=== PATIENT | female | born 1960 | race Caucasian/White ===

== ENCOUNTER 2018-10-13 13:11 | Emergency (ER) | payer BC ==
--- OUTSIDE RECORDS SUMMARY | 2018-10-13 13:13 | XMS REPORT ---
:1960 Author Organization [employer] Care Team Providers Name Role Phone Wilson, Sara Provider Role Unavailable Allergies, Adverse Reactions, Alerts Substance Reaction Event Type N.K.D.A. Info Not Available Non Drug Allergy Problems Problem Type Condition Code Onset Dates Condition Status Problem History of ovarian cancer Z85.43 Active Problem Cancer C80.1 Active Problem Sinus problem J34.9 Active Problem Other acute nonsuppurative otitis H65.191 Active media of right ear, recurrence not specified Problem Hernia of abdominal cavity K46.9 Active Problem Seasonal allergies J30.2 Active Problem Allergic sinusitis J30.9 Active Problem Gallstones K80.20 Active Problem History of colostomy reversal Z98.890 Active Problem HTN (hypertension) I10 Active Assessment Blood tests for routine general Z00.00 Active physical examination Assessment Seasonal allergies J30.2 Active Assessment HTN (hypertension) I10 Active Assessment Screening mammogram for high-risk Z12.31 Active patient Assessment History of ovarian cancer Z85.43 Active Problem Seasonal allergic rhinitis due to J30.1 Active pollen Medications Medication Code Code Instructions Start End Status Dosage System Date Date Scopolamine [facility] 50703169201 1 MG/3DAYS Active 1 patch to Transdermal skin every every 72 hours 3 days as needed for nausea Losartan ND 46030383099 100 MG Orally Active 1 tablet Potassium Once a day Nasonex ND 61473091572 50 MCG/ACT April 26, Active 2 sprays Nasally Once a 2018 in each day nostril Results No Known Results Summary Purpose [employer] Submission
--- OUTSIDE RECORDS SUMMARY | 2018-10-13 13:13 | XMS REPORT | Clinical Summary ---
:1960 Author Organization [facility] Address [address] [place] [address] Care Team Providers Name Role Phone Masoud Lyman MD Primary Care Provider Allergies Active Allergy Reactions Severity Noted Date Comments No Known Drug Allergies 06/05/2016 Medications Medication Sig Dispensed Refills Start Date End Date Status COZAAR 100 mg tablet Take 100 mg by 0 06/29/2018 Active mouth daily. chlorpheniramine Take 5 mg by 0 Active (CHLOR-TRIMETON) 4 mg mouth every 6 tablet (six) hours as needed for allergies. triamcinolone (KENALOG) Apply topically 0 Active 0.147 mg/gram topical 2 (two) times a spray day. triamcinolone (NASACORT) into each 0 Active 55 mcg nasal inhaler nostril. Active Problems Not on file Encounters Date Type Specialty Care Team Description 08/27/2018 Telephone Radiology Barbra Quick RN 08/24/2018 Hospital Encounter Radiology Lavern Dudley Malignant neoplasm MD Terence of ovary, unspecified laterality (HCC) 08/24/2018 Hospital Encounter Radiology Lavern Dudley Malignant neoplasm MD Terence of ovary, unspecified laterality (HCC) 08/15/2018 Abstract Gynecologic Oncology Lavern Dudley MD 08/12/2018 Hospital Encounter Radiology Lavern Dudley MD 08/12/2018 Office Visit Gynecologic Oncology Lavern Dudley Malignant neoplasm of ovary, unspecified laterality (HCC) (Primary Dx); MD Terence Recurrent cancer (HCC) 08/12/2018 Telephone Gynecologic Oncology Lavern Dudley MD 08/04/2018 Telephone Gynecologic Oncology Lavern Dudley MD 08/03/2018 Telephone Gynecologic Oncology Lavern Dudley MD after 10/12/2017 Family History Medical History Relation Name Comments Hypertension Other Colon cancer Paternal Grandfather Breast cancer Paternal Grandmother Breast cancer Sister Relation Name Status Comments Other Paternal Grandfather Paternal Grandmother Sister Social History Tobacco Use Types Packs/Day Years Used Date Never Smoker Smokeless Tobacco: Never Used Alcohol Use Drinks/Week oz/Week Comments No Sex Assigned at Date Recorded Not on file Job Start Date Occupation Industry Not on file Not on file Not on file Travel History Travel Start Travel End No recent travel history available. Last Filed Vital Signs Vital Sign Reading Time Taken Blood Pressure 122/69 08/24/2018 12:50 PM CDT Pulse 86 08/24/2018 12:50 PM CDT Temperature 37.3 C (99.1 F) 08/24/2018 8:06 AM CDT Respiratory Rate 17 08/24/2018 12:50 PM CDT Oxygen Saturation 95% 08/24/2018 12:50 PM CDT Inhaled Oxygen Concentration - - Weight 98.9 kg (218 lb) 08/24/2018 8:06 AM CDT Height 175.3 cm (5' 9") 08/24/2018 8:06 AM CDT Body Mass Index 32.19 08/24/2018 8:06 AM CDT Plan of Treatment Date Type Specialty Care Team Description 11/17/2018 Office Visit [place] [address] [facility] [address] [place] [address] [id number] Health Maintenance Due Date Last Done Comments CERVICAL CANCER SCREENING 1979 BREAST CANCER SCREENING 2008 COLON CANCER SCREENING 2008 SHINGLES VACCINES (1 of 2) 2008 INFLUENZA VACCINE 06/01/2018 Implants Implanted Type Area Medical Office Assistant Instructor Device Shelf Model / Identifier Expiration Serial / Date Lot Port Imlpntbl Smart Port W/ Dtchd 0.4ml 6.6fr 55cm W/ Sheath - [id number] Implantable N/A: ANGIODYNAMICS 03/31/2021 [id number] / Implanted: 08/24/2018 (Quantity not on file) Infusion Ports N/A INC / or Accessories [id number] Procedures Procedure Name Priority Date/Time Associated Comments Diagnosis US GUIDED VASCULAR Routine 08/24/2018 11:22 Malignant neoplasm Results for this ACCESS AM CDT of ovary, procedure are in unspecified the results laterality (HCC) section. IR PORT PLACEMENT Routine 08/24/2018 11:22 Malignant neoplasm Results for this AM CDT of ovary, procedure are in unspecified the results laterality (HCC) section. SURGICAL PATHOLOGY Routine 08/24/2018 10:46 Results for this REQUEST AM CDT procedure are in the results section. CT NEEDLE BIOPSY NO Routine 08/24/2018 10:02 Malignant neoplasm Results for this CONTRAST AM CDT of ovary, procedure are in unspecified the results laterality (HCC) section. HC COMPLETE BLD COUNT STAT 08/24/2018 7:45 Results for this W/AUTO DIFF AM CDT procedure are in the results section. PARTIAL THROMBOPLASTIN STAT 08/24/2018 7:45 Results for this TIME (PTT) AM CDT procedure are in the results section. PROTHROMBIN TIME WITH STAT 08/24/2018 7:45 Results for this INR AM CDT procedure are in the results section. SURGICAL PATHOLOGY Routine 08/24/2018 Results for this REQUEST procedure are in the results section. PET CT SKULL BASE TO Routine 08/18/2018 Results for this MID THIGH procedure are in the results section. ESTIMATED GFR Routine 08/12/2018 10:45 Results for this AM CDT procedure are in the results section. PARTIAL THROMBOPLASTIN Routine 08/12/2018 10:45 Malignant neoplasm Results for this TIME (PTT) AM CDT of ovary, procedure are in unspecified the results laterality (HCC) section. COMPREHENSIVE METABOLIC Routine 08/12/2018 10:45 Malignant neoplasm Results for this PANEL AM CDT of ovary, procedure are in unspecified the results laterality (HCC) section. HC COMPLETE BLD COUNT Routine 08/12/2018 10:45 Malignant neoplasm Results for this W/AUTO DIFF AM CDT of ovary, procedure are in unspecified the results laterality (HCC) section. CANCER ANTIGEN 125 Routine 08/12/2018 10:45 Malignant neoplasm Results for this AM CDT of ovary, procedure are in unspecified the results laterality (HCC) section. PROTHROMBIN TIME WITH Routine 08/12/2018 10:45 Malignant neoplasm Results for this INR AM CDT of ovary, procedure are in unspecified the results laterality (HCC) section. CANCER ANTIGEN 125 Routine 08/12/2018 CT ABD/PELVIC EXTERNAL Routine 07/22/2018 2:49 Results for this STUDY PM CDT procedure are in the results section. after 10/12/2017 Results IR Port Placement (08/24/2018 11:22 AM CDT) Narrative Performed At Performing Radiologist COLIN Varela MD Assistants None Anesthesia Type Moderate sedation was administered by the procedure nurse and monitored by the procedure physician for a total intraservice sedation time of 41 minutes. 75 mcg of IV fentanyl and 1.5 mg of IV versed were administered. Lidocaine 1% and lidocaine 1% mixed with epinephrine were used for local anesthetic. Pre Procedure Diagnosis ovarian malignancy Post Procedure Diagnosis Status post subcutaneous right chest port placement. Procedure Subcutaneous right chest port placement. Technique Written informed consent was obtained prior to the procedure. All elements of maximal sterile barrier technique were followed. Using ultrasound guidance, the right internal jugular vein was punctured with a 21-gauge needle allowing placement of a 0.018 inch guidewire. The needle was removed and a micropuncture sheath was then placed over the guidewire. Under ultrasound guidance, documentation of vessel patency, needle access with permanent recording, and reporting are performed followed by placement of a sheath in the right internal jugular vein. A subcutaneous pocket was then created at the right infraclavicular fossa using sharp and blunt dissection. A tunnel was made between the pocket and the venotomy site, through which the 6.6-Cuban port catheter was placed. The venotomy was sequentially dilated to accept an 7-Cuban peel-away sheath, through which the leading edge of the catheter was advanced under fluoroscopic guidance. The trailing end of the catheter was trimmed to the appropriate length and attached to a low profile Angiodynamics Smart Port CT. Following irrigation of the pocket with dilute antibiotic solution, the port was placed within the pocket. The port incision was closed using a deep layer of interrupted 3-0 Vicryl suture, 4-0 Monocryl running subcuticular suture, Dermabond and Steri-Strips. The small venotomy incision was closed using Dermabond and Steri-Strips. The port was accessed and found to flush and aspirate freely. A post placement fluoroscopic imaging of the chest was then obtained. There were no complications. Total Fluoroscopic Time 0.2 minutes . Total number of fluoroscopic images: 1 Complications None. Specimens Removed None. Estimated Blood Loss Less than 2 mL. Blood/Blood Products Administered None. Grafts/Implants As described in the above report. Impression: Successful fluoroscopic-guided placement of a subcutaneous right chest port via the right internal jugular vein. The catheter tip lies at the right atrium/superior vena cava junction and is ready for use. [id number] Procedure Note Hm Interface, Radiology Results Incoming - 08/24/2018 4:09 PM CDT Performing Radiologist Tripp Varela MD Assistants None Anesthesia Type Moderate sedation was administered by the procedure nurse and monitored by the procedure physician for a total intraservice sedation time of 41 minutes. 75 mcg of IV fentanyl and 1.5 mg of IV versed were administered. Lidocaine 1% and lidocaine 1% mixed with epinephrine were used for local anesthetic. Pre Procedure Diagnosis ovarian malignancy Post Procedure Diagnosis Status post subcutaneous right chest port placement. Procedure Subcutaneous right chest port placement. Technique Written informed consent was obtained prior to the procedure. All elements of maximal sterile barrier technique were followed. Using ultrasound guidance, the right internal jugular vein was punctured with a 21-gauge needle allowing placement of a 0.018 inch guidewire. The needle was removed and a micropuncture sheath was then placed over the guidewire. Under ultrasound guidance, documentation of vessel patency, needle access with permanent recording, and reporting are performed followed by placement of a sheath in the right internal jugular vein. A subcutaneous pocket was then created at the right infraclavicular fossa using sharp and blunt dissection. A tunnel was made between the pocket and the venotomy site, through which the 6.6- Cuban port catheter was placed. The venotomy was sequentially dilated to accept an 7- Cuban peel-away sheath, through which the leading edge of the catheter was advanced under fluoroscopic guidance. The trailing end of the catheter was trimmed to the appropriate length and attached to a low profile Angiodynamics Smart Port CT. Following irrigation of the pocket with dilute antibiotic solution, the port was placed within the pocket. The port incision was closed using a deep layer of interrupted 3-0 Vicryl suture, 4-0 Monocryl running subcuticular suture, Dermabond and Steri-Strips. The small venotomy incision was closed using Dermabond and Steri-Strips. The port was accessed and found to flush and aspirate freely. A post placement fluoroscopic imaging of the chest was then obtained. There were no complications. Total Fluoroscopic Time 0.2 minutes . Total number of fluoroscopic images: 1 Complications None. Specimens Removed None. Estimated Blood Loss Less than 2 mL. Blood/Blood Products Administered None. Grafts/Implants As described in the above report. Impression: Successful fluoroscopic-guided placement of a subcutaneous right chest port via the right internal jugular vein. The catheter tip lies at the right atrium/ superior vena cava junction and is ready for use. [id number] Performing Organization Address City/State/Zipcode Phone Number [facility] [address] [place] [address] US Guided Vascular Access (08/24/2018 11:22 AM CDT) Narrative Performed At Performing Radiologist GISSELL Varela MD Assistants None Anesthesia Type Moderate sedation was administered by the procedure nurse and monitored by the procedure physician for a total intraservice sedation time of 41 minutes. 75 mcg of IV fentanyl and 1.5 mg of IV versed were administered. Lidocaine 1% and lidocaine 1% mixed with epinephrine were used for local anesthetic. Pre Procedure Diagnosis ovarian malignancy Post Procedure Diagnosis Status post subcutaneous right chest port placement. Procedure Subcutaneous right chest port placement. Technique Written informed consent was obtained prior to the procedure. All elements of maximal sterile barrier technique were followed. Using ultrasound guidance, the right internal jugular vein was punctured with a 21-gauge needle allowing placement of a 0.018 inch guidewire. The needle was removed and a micropuncture sheath was then placed over the guidewire. Under ultrasound guidance, documentation of vessel patency, needle access with permanent recording, and reporting are performed followed by placement of a sheath in the right internal jugular vein. A subcutaneous pocket was then created at the right infraclavicular fossa using sharp and blunt dissection. A tunnel was made between the pocket and the venotomy site, through which the 6.6-Cuban port catheter was placed. The venotomy was sequentially dilated to accept an 7-Cuban peel-away sheath, through which the leading edge of the catheter was advanced under fluoroscopic guidance. The trailing end of the catheter was trimmed to the appropriate length and attached to a low profile Angiodynamics Smart Port CT. Following irrigation of the pocket with dilute antibiotic solution, the port was placed within the pocket. The port incision was closed using a deep layer of interrupted 3-0 Vicryl suture, 4-0 Monocryl running subcuticular suture, Dermabond and Steri-Strips. The small venotomy incision was closed using Dermabond and Steri-Strips. The port was accessed and found to flush and aspirate freely. A post placement fluoroscopic imaging of the chest was then obtained. There were no complications. Total Fluoroscopic Time 0.2 minutes . Total number of fluoroscopic images: 1 Complications None. Specimens Removed None. Estimated Blood Loss Less than 2 mL. Blood/Blood Products Administered None. Grafts/Implants As described in the above report. Impression: Successful fluoroscopic-guided placement of a subcutaneous right chest port via the right internal jugular vein. The catheter tip lies at the right atrium/superior vena cava junction and is ready for use. [id number] Procedure Note Hm Interface, Radiology Results Incoming - 08/24/2018 4:09 PM CDT Performing Radiologist Tripp Varela MD Assistants None Anesthesia Type Moderate sedation was administered by the procedure nurse and monitored by the procedure physician for a total intraservice sedation time of 41 minutes. 75 mcg of IV fentanyl and 1.5 mg of IV versed were administered. Lidocaine 1% and lidocaine 1% mixed with epinephrine were used for local anesthetic. Pre Procedure Diagnosis ovarian malignancy Post Procedure Diagnosis Status post subcutaneous right chest port placement. Procedure Subcutaneous right chest port placement. Technique Written informed consent was obtained prior to the procedure. All elements of maximal sterile barrier technique were followed. Using ultrasound guidance, the right internal jugular vein was punctured with a 21-gauge needle allowing placement of a 0.018 inch guidewire. The needle was removed and a micropuncture sheath was then placed over the guidewire. Under ultrasound guidance, documentation of vessel patency, needle access with permanent recording, and reporting are performed followed by placement of a sheath in the right internal jugular vein. A subcutaneous pocket was then created at the right infraclavicular fossa using sharp and blunt dissection. A tunnel was made between the pocket and the venotomy site, through which the 6.6- Cuban port catheter was placed. The venotomy was sequentially dilated to accept an 7- Cuban peel-away sheath, through which the leading edge of the catheter was advanced under fluoroscopic guidance. The trailing end of the catheter was trimmed to the appropriate length and attached to a low profile Angiodynamics Smart Port CT. Following irrigation of the pocket with dilute antibiotic solution, the port was placed within the pocket. The port incision was closed using a deep layer of interrupted 3-0 Vicryl suture, 4-0 Monocryl running subcuticular suture, Dermabond and Steri-Strips. The small venotomy incision was closed using Dermabond and Steri-Strips. The port was accessed and found to flush and aspirate freely. A post placement fluoroscopic imaging of the chest was then obtained. There were no complications. Total Fluoroscopic Time 0.2 minutes . Total number of fluoroscopic images: 1 Complications None. Specimens Removed None. Estimated Blood Loss Less than 2 mL. Blood/Blood Products Administered None. Grafts/Implants As described in the above report. Impression: Successful fluoroscopic-guided placement of a subcutaneous right chest port via the right internal jugular vein. The catheter tip lies at the right atrium/ superior vena cava junction and is ready for use. [id number] Performing Organization Address City/[facility] Phone Number [facility] [address] [place] [address] Surgical pathology request (08/24/2018 10:46 AM CDT)Only the most recent of2 resultswithin the time period is included. [facility] DEPARTMENT OF PATHOLOGY AND GENOMIC MEDICINE Surgical pathology report See link below for PDF [facility] DEPARTMENT OF Lab Report PATHOLOGY AND GENOMIC MEDICINE Result status This is Final Report [facility] DEPARTMENT OF for [id number] PATHOLOGY AND GENOMIC MEDICINE Performing Organization Address [facility]ode Phone Number [facility] DEPARTMENT OF PATHOLOGY [address] [place] [address] Needle Biopsy No Contrast (08/24/2018 10:02 AM CDT) Narrative Performed At EXAMINATION:CT NEEDLE BIOPSY NO CONTRAST RADIANT CLINICAL HISTORY:C56.9 Malignant neoplasm of unspecified ovary, IR biopsy of pelvic mass COMPARISON:None. TECHNIQUE: The risks and benefits of the procedure were discussed the patient. Informed consent was obtained. Preprocedure scanning confirms an 8 cm complex cystic mass in the pelvis which was targeted for biopsy. A preprocedural timeout was performed. The patient was positioned supine. The skin overlying the lower abdomen was sterilely prepped and draped in usual fashion. 1% buffered lidocaine was used for local anesthesia. Using CT guidance, a 19-gauge guide needle was advanced into the mass via a left anterolateral abdominal approach. Multiple core biopsy specimens were obtained using a 20-gauge core biopsy needle through the guide needle using standard coaxial technique. Specimens were sent to pathology for adequacy check. The guide needle was then removed and a bandage was applied. There were no complications. Moderate monitored sedation was achieved with 1.5 mg of IV Versed and 75 mcg of IV fentanyl, total intraservice sedation 37 minutes. IMPRESSION: Uncomplicated CT-guided biopsy of 8 cm pelvic complex mass. [id number] Procedure Note Interface, Radiology Results Incoming - 08/24/2018 1:34 PM CDT EXAMINATION: CT NEEDLE BIOPSY NO CONTRAST CLINICAL HISTORY: C56.9 Malignant neoplasm of unspecified ovary, IR biopsy of pelvic mass COMPARISON: None. TECHNIQUE: The risks and benefits of the procedure were discussed the patient. Informed consent was obtained. Preprocedure scanning confirms an 8 cm complex cystic mass in the pelvis which was targeted for biopsy. A preprocedural timeout was performed. The patient was positioned supine. The skin overlying the lower abdomen was sterilely prepped and draped in usual fashion. 1% buffered lidocaine was used for local anesthesia. Using CT guidance, a 19-gauge guide needle was advanced into the mass via a left anterolateral abdominal approach. Multiple core biopsy specimens were obtained using a 20-gauge core biopsy needle through the guide needle using standard coaxial technique. Specimens were sent to pathology for adequacy check. The guide needle was then removed and a bandage was applied. There were no complications. Moderate monitored sedation was achieved with 1.5 mg of IV Versed and 75 mcg of IV fentanyl, total intraservice sedation 37 minutes. IMPRESSION: Uncomplicated CT-guided biopsy of 8 cm pelvic complex mass. [id number] Performing Organization Address City/State/Zipcode Phone Number [facility] [address] [facility] [place] [address] Partial thromboplastin time, activated (08/24/2018 7:45 AM CDT)Only the most recent of2 resultswithin the time period is included. PTT 29.5 23.0 - 36.0 sec [facility] DEPARTMENT OF Comment: PATHOLOGY AND GENOMIC PTT therapeutic range for unfractionated heparin is MEDICINE 61.0-112.0 seconds which corresponds to Anti-Xa 0.3-0.7 U/ml. Specimen Blood Performing Organization Address City/[facility]/Zipcode Phone Number [facility] DEPARTMENT OF PATHOLOGY [address] [place] [address] Prothrombin time with INR (08/24/2018 7:45 AM CDT)Only the most recent of2 resultswithin the time period is included. Prothrombin time 13.1 12.0 - 15.0 sec [facility] DEPARTMENT OF PATHOLOGY AND GENOMIC MEDICINE INR 1.0 [facility] DEPARTMENT OF Comment: PATHOLOGY AND GENOMIC The International Normalized Ratio (INR) is a therapeutic MEDICINE monitoring tool for patients who are stable on oral anticoagulant therapy. An INR of 2.0-3.0 is suggested for deep vein thrombosis/pulmonary embolism. Specimen Blood Performing Organization Address [facility]ode Phone Number [facility] OF PATHOLOGY [address] [place] [address] CBC with platelet and differential (08/24/2018 7:45 AM CDT)Only the most recent of2 resultswithin the time period is included. WBC 9.1 4.5 - 11.0 k/uL [facility] DEPARTMENT OF PATHOLOGY AND GENOMIC MEDICINE RBC 4.66 4.20 - 5.50 m/uL [facility] DEPARTMENT OF PATHOLOGY AND GENOMIC MEDICINE HGB 13.1 12.0 - 16.0 g/dL [facility] DEPARTMENT OF PATHOLOGY AND GENOMIC MEDICINE HCT 39.7 37.0 - 47.0 % [facility] DEPARTMENT OF PATHOLOGY AND GENOMIC MEDICINE MCV 85.2 82.0 - 100.0 fL [facility] DEPARTMENT OF PATHOLOGY AND GENOMIC MEDICINE MCH 28.1 27.0 - 34.0 pg [facility] DEPARTMENT OF PATHOLOGY AND GENOMIC MEDICINE MCHC 33.0 31.0 - 37.0 g/dL [facility] DEPARTMENT OF PATHOLOGY AND GENOMIC MEDICINE RDW - SD 39.8 37.0 - 55.0 fL [facility] DEPARTMENT OF PATHOLOGY AND GENOMIC MEDICINE MPV 10.9 6.9 - 11.0 fL [facility] DEPARTMENT OF PATHOLOGY AND GENOMIC MEDICINE Platelet count 248 150 - 400 K/uL [facility] DEPARTMENT OF PATHOLOGY AND GENOMIC MEDICINE Nucleated RBC 0.00 /100 WBC [facility] DEPARTMENT OF PATHOLOGY AND GENOMIC MEDICINE Neutrophils 66.4 39.0 - 69.0 % [facility] DEPARTMENT OF PATHOLOGY AND GENOMIC MEDICINE Lymphocytes 21.7 (L) 25.0 - 45.0 % [facility] DEPARTMENT OF PATHOLOGY AND GENOMIC MEDICINE Monocytes 7.8 0.0 - 10.0 % [facility] DEPARTMENT OF PATHOLOGY AND GENOMIC MEDICINE Eosinophils 3.4 0.0 - 5.0 % [facility] DEPARTMENT OF PATHOLOGY AND GENOMIC MEDICINE Basophils 0.4 0.0 - 1.0 % [facility] DEPARTMENT OF PATHOLOGY AND GENOMIC MEDICINE Immature granulocytes 0.3 0.0 - 1.0 % [facility] DEPARTMENT OF PATHOLOGY AND GENOMIC MEDICINE Specimen Blood Performing Organization Address City/State/Zipcode Phone Number [facility] DEPARTMENT OF PATHOLOGY [address] [facility] [place] [address] AND GENOMIC MEDICINE PET/CT Skull Base To Mid Thigh (08/18/2018) Narrative Performed At [facility] RADIOLOGY SERVICES REPORT Name: LASHAY FRANCO : 1960 Age: 57 Sex: F Unit Number: [id number] Status: REG REF RAD Acct Number: [id number] Ord Phys: Abiel Metzger.Jenny NUÑEZ [place] [facility] [address]: Exam Date: 08/18/18 Reason for Exam: C56.1 Report status: Signed EXAM DESCRIPTION: NM - Ct Skull/Thigh - 08/18/2018 1:19 pm CLINICAL HISTORY: 056.1 COMPARISON: CT imaging July. TECHNIQUE: Blood Glucose Mamou: 87 mg/dl Radioisotope: 10.79 MCi of F-18 Fluorodeoxyglucose (FDG) IV PET/CT imaging was obtained from the inferior cerebral hemisphere level to the mid thigh level. Multiplanar PET, CT and fused PET/CT images were reviewed with 3 dimensional rotational images also reviewed. FINDINGS: Skull base and neck show physiologic activity. No suspicious finding. Enlarged right lobe of thyroid gland is noted likely containing a 3 cm nodule. This does not show suspicious FDG uptake. F ollow-up of the nodule can be performed as warranted. No abnormal lung uptake. No mediastinal or hilar abnormal activity. No chest wall or axillary abnormal uptake. The liver shows physiologic activity with no finding suspicious for metastatic disease. Normal abnormal adrenal activity. The previously detailed large midline and left pelvic floor mass 9 cm in size shows intense FDG uptake reaching 20.38 mean SUV. Anterior margin of this mass shows no FDG uptake likely due to necrosis. N o adjacent satellite lesion or lymphadenopathy in the abdomen or pelvis. No omental caking. No ascites is seen No suspicious bone, muscle or soft tissue activity otherwise noted. IMPRESSION: 1.Intense FDG uptake reaching 20.38 mean SUV in the previously detailed 9 cm pelvic floor mass. 2.No other abnormal abdomen and pelvis uptake. 3.No abnormal chest uptake. 4.Enlarged right lobe of the thyroid gland likely containing a 3 cm nodule. This can be followed as warranted. CC: Jenny Anand MDLASHAY KELLER Vishal Report [id number] Dictated By: Tavo Nixon MD 08/22/18 1130 Signed By: Tavo Nixon MD 08/22/18 1131 Rail Engineer AURELIANO 08/22/18 1130 Additional Comment(s) for PET SCAN, for Lashay Franco dated 08/22/2018 [Sign-off by Dr. Jenny Beebe and request additional sign-off by Dominique Garcia 08/22/2018 at 12:07 PM] uptake in the pelvic mass as expected, no distant sites of uptake to suggest mets.PI let pt know and fax to [facility] Radiology Services Report Estimated GFR (08/12/2018 10:45 AM CDT) Estimated GFR 77 mL/min/1.73 m2 [facility] DEPARTMENT OF Comment: PATHOLOGY AND GENOMIC CatergoryUnitsInterpretation MEDICINE G1 >=90 Normal or high G2 60-89Mildly decreased [id number] to moderately decreased [id number] to severely decreased G4 15-29Severely decreased G5 <15Kidney failure The eGFR was calculated using the Chronic Kidney Disease Epidemiology Collaboration (CKD-EPI) equation. Interpretation is based on recommendations of the National Kidney Foundation-Kidney Disease Outcomes Quality Initiative (NKF-KDOQI) published in 2014. Specimen Plasma specimen Performing Organization Address City/State/Zipcode Phone Number [facility] DEPARTMENT OF PATHOLOGY AND [address] [place] [address] [employer] [facility] antigen 125 (08/12/2018 10:45 AM CDT)Only the most recent of2 resultswithin the time period is included. CA 125 36 (H) 0 - 35 U/mL [facility] DEPARTMENT OF PATHOLOGY Comment: AND GENOMIC MEDICINE The [place] Zak 8000 CA125 immunoassay was used. Results obtained with different assay methods or kits should not be used interchangeably and may be different. Specimen Plasma specimen Performing Organization Address City/[facility]/Zipcode Phone Number [facility] DEPARTMENT OF PATHOLOGY AND [address] [place] [address] [facility] Comprehensive metabolic panel (08/12/2018 10:45 AM CDT) Sodium 142 135 - 148 mEq/L [facility] DEPARTMENT OF PATHOLOGY AND GENOMIC MEDICINE Potassium 4.0 3.5 - 5.0 mEq/L [facility] DEPARTMENT OF PATHOLOGY AND GENOMIC MEDICINE Chloride 106 99 - 109 mEq/L [facility] DEPARTMENT OF PATHOLOGY AND GENOMIC MEDICINE CO2 25 24 - 31 mEq/L [facility] DEPARTMENT OF PATHOLOGY AND GENOMIC MEDICINE Anion gap 11@ANIO 7 - 15 mEq/L [facility] DEPARTMENT OF PATHOLOGY AND GENOMIC MEDICINE BUN 12 8 - 24 mg/dL [facility] DEPARTMENT OF PATHOLOGY AND GENOMIC MEDICINE Creatinine 0.83 0.50 - 0.90 mg/dL [facility] DEPARTMENT OF PATHOLOGY AND GENOMIC MEDICINE Glucose 102 (H) 65 - 99 mg/dL [facility] DEPARTMENT OF PATHOLOGY AND GENOMIC MEDICINE Calcium 9.2 8.6 - 10.6 mg/dL [facility] DEPARTMENT OF PATHOLOGY AND GENOMIC MEDICINE Protein 7.2 6.3 - 8.2 g/dL [facility] DEPARTMENT OF PATHOLOGY AND GENOMIC MEDICINE Albumin 3.6 3.5 - 5.0 g/dL [facility] DEPARTMENT OF PATHOLOGY AND GENOMIC MEDICINE A/G ratio 1.0 0.7 - 3.8 [facility] DEPARTMENT OF PATHOLOGY AND GENOMIC MEDICINE Alkaline phosphatase 77 30 - 115 U/L [facility] DEPARTMENT OF PATHOLOGY AND GENOMIC MEDICINE AST 19 15 - 46 U/L [facility] DEPARTMENT OF PATHOLOGY AND GENOMIC MEDICINE ALT 21 10 - 55 U/L [facility] DEPARTMENT OF PATHOLOGY AND GENOMIC MEDICINE Total bilirubin <0.3 0.2 - 1.2 mg/dL [facility] DEPARTMENT OF PATHOLOGY AND [facility] Specimen Plasma specimen Performing Organization Address City/[facility]/Zipcode Phone Number [facility] DEPARTMENT OF PATHOLOGY AND [address] [place] [address] [facility] Abd/Pelvic External Study (07/22/2018 2:49 PM CDT) Narrative Performed At This exam was not acquired at a [facility] facility and has not been [facility] interpreted by a [facility] Provider.The exam was imported into our imaging system for comparisons purposes. Performing Organization Address City/[facility]/Zipcode Phone Number [facility] [address] [place] [address] after 10/12/2017 Insurance Payer Benefit Plan / Group Subscriber ID Type Phone Address [employer]/HMO BLUE ESSENTIALS xxxxxxxxxxxx HMO [phone] (Work) Advance Directives Patient has advance care planning documents on file. For more information, please contact:Gilbert Dumont[address] [place] [address]
--- NOTE | 2018-10-13 14:46 | ER ---
Nurse's Notes [facility] Name: Tracey Harvey Age: 57 yrs Sex: Female : 1960 Arrival Date: 10/13/2018 Time: 13:20 Bed 25 Private MD: Diagnosis: Acute allergic reaction Presentation: 10/13 13:20 Presenting complaint: EMS states: pt was on #rd round of Chemo, getting Carboplatin tl3 when she became flush all over , felt hot with chest tightness and dyspneic. Received 12.5 mg Benadryl IM and Albuterol en route, all S/S resolved except for flush color and itching. Transition of care: patient was received from another setting of care (ambulatory specialty care practice), [facility]. Onset: The symptoms/episode began/occurred suddenly. Anaphylaxis evaluation, reports flush, feeling hot, dyspneic with chest tightness. Onset of symptoms was October 13, 2018 at 13:00. Risk Assessment: Do you want to hurt yourself or someone else? Patient reports no desire to harm self or others. Initial Sepsis Screen: Does the patient meet any 2 criteria? No. Patient's initial sepsis screen is negative. Does the patient have a suspected source of infection? No. Patient's initial sepsis screen is negative. Care prior to arrival: Medication(s) given: Normal saline infusion, 500 mL, 12.5 Benadryl IM. 13:20 Method Of Arrival: EMS: [facility] tl3 13:20 Acuity: VIKTOR 3 tl3 Triage Assessment: 13:28 General: Appears in no apparent distress. comfortable, well groomed, well developed, tl3 well nourished, Behavior is calm, cooperative, appropriate for age. Pain: Denies pain. EENT: No deficits noted. No signs and/or symptoms were reported regarding the EENT system. Neuro: No deficits noted. Level of Consciousness is awake, alert, obeys commands, Oriented to person, place, time, situation, Appropriate for age. Cardiovascular: Heart tones S1 S2 present Patient's skin is warm and dry. Respiratory: Airway is patent Respiratory effort is even, unlabored, Respiratory pattern is regular, symmetrical, Breath sounds are clear bilaterally. GI: No deficits noted. No signs and/or symptoms were reported involving the gastrointestinal system. : No deficits noted. No signs and/or symptoms were reported regarding the genitourinary system. Derm: Skin is flushed. Derm: Reports itching. Historical: - Allergies: 13:28 No Known Drug Allergies; tl3 - PMHx: 13:28 ovarian cancer; tl3 - PSHx: 13:28 Colon resection; Appendectomy; Cholecystectomy; Tonsillectomy; D \T\ C; Hysterectomy; tl3 Colostomy; - Immunization history:: Adult Immunizations up to date. - Social history:: Smoking status: unknown. - Ebola Screening: : No symptoms or risks identified at this time. Screenin:31 Abuse screen: Denies threats or abuse. Nutritional screening: No deficits noted. tl3 Tuberculosis screening: No symptoms or risk factors identified. Fall Risk None identified. Assessment: 13:31 Reassessment: No changes from previously documented assessment. tl3 14:35 Reassessment: Patient appears in no apparent distress at this time. Patient and/or tl3 family updated on plan of care and expected duration. Pain level reassessed. Patient is alert, oriented x 3, equal unlabored respirations, skin warm/dry/pink. pt is comfortable no longer flushed or itching, Port clamped and fitted with male adapter and cap. 15:00 Reassessment: Patient appears in no apparent distress at this time. No changes from tl3 previously documented assessment. Patient and/or family updated on plan of care and expected duration. Pain level reassessed. Patient is alert, oriented x 3, equal unlabored respirations, skin warm/dry/pink. Vital Signs: 13:28 BP 163 / 92; Pulse 74; Resp 18; Temp 98.7; Pulse Ox 100% on 2 lpm NC; tl3 14:35 BP 140 / 95; Pulse 85; Resp 18; Pulse Ox 94% on R/A; tl3 15:00 BP 157 / 95; Pulse 80; Resp 18; Pulse Ox 96% ; tl3 ED Course: 13:20 Patient arrived in ED. tl3 13:26 Triage completed. tl3 13:28 Guicho Gutierrez MD is Attending Physician. kdr 13:28 Arm band placed on right wrist. tl3 13:31 Patient has correct armband on for positive identification. Bed in low position. Call tl3 light in reach. Side rails up X 1. Adult w/ patient. Pulse ox on. NIBP on. 13:31 No provider procedures requiring assistance completed. tl3 13:50 Keisha Arriaza, RN is Primary Nurse. tl3 15:00 pt to back to the [facility] to get port access removed. tl3 Administered Medications: No medications were administered Outcome: 14:45 Discharge ordered by . kdr 15:00 Discharged to home ambulatory. tl3 15:00 Condition: improved 15:00 Discharge instructions given to patient, family, Instructed on discharge instructions, follow up and referral plans. medication usage, Demonstrated understanding of instructions, follow-up care, medications, Prescriptions given X 1. 15:28 Patient left the ED. tl3 Signatures: Guicho Gutierrez MD MD [facility] Keisha Arriaza, RN RN tl3
--- NOTE | 2018-10-13 14:46 | EDPHYS ---
Physician Documentation [facility] Name: Tracey Harvey Age: 57 yrs Sex: Female : 1960 Arrival Date: 10/13/2018 Time: 13:20 Bed 25 Private MD: ED Physician Guicho Gutierrez HPI: 10/13 13:44 This 57 yrs old Female presents to ER via EMS with complaints of Allergic kdr Reaction. 13:44 The patient presents with diffuse swelling, dizziness, itching, redness of skin, kdr wheezing. Onset: The symptoms/episode began/occurred suddenly, just prior to arrival. Associated signs and symptoms: The patient has no apparent associated signs or symptoms. Possible causes: Carboplatin. At home the patient or guardian has treated the symptoms with Benadryl, respiratory inhaler, steroids, Seen in oncology office. Severity of symptoms: At their worst the symptoms were moderate severe just prior to arrival, in the emergency department the symptoms have improved markedly. The patient has not experienced similar symptoms in the past. The patient has been recently seen by a physician: Oncology. Historical: - Allergies: 13:28 No Known Drug Allergies; tl3 - PMHx: 13:28 ovarian cancer; tl3 - PSHx: 13:28 Colon resection; Appendectomy; Cholecystectomy; Tonsillectomy; D \T\ C; Hysterectomy; tl3 Colostomy; - Immunization history:: Adult Immunizations up to date. - Social history:: Smoking status: unknown. - Ebola Screening: : No symptoms or risks identified at this time. ROS: 13:44 Constitutional: Negative for fever, chills, and weight loss, Eyes: Negative for injury, kdr pain, redness, and discharge, Neck: Negative for injury, pain, and swelling, Cardiovascular: Negative for chest pain, palpitations, and edema, Respiratory: Negative for shortness of breath, cough, wheezing, and pleuritic chest pain, Abdomen/GI: Negative for abdominal pain, nausea, vomiting, diarrhea, and constipation, Back: Negative for injury and pain, MS/Extremity: Negative for injury and deformity, Neuro: Negative for headache, weakness, numbness, tingling, and seizure activity. Psych: Negative for depression, anxiety, suicide ideation, homicidal ideation, and hallucinations, Allergy/Immunology: Negative for hives, rash, - she did have generalized reddness to her skin and difficulty breathing Endocrine: Negative for neck swelling, polydipsia, polyuria, polyphagia, and marked weight changes, Hematologic/Lymphatic: Negative for swollen nodes, abnormal bleeding, and unusual bruising. Exam: 13:44 Constitutional: This is a well developed, well nourished patient who is awake, alert, kdr and in no acute distress. Head/Face: Normocephalic, atraumatic. Eyes: Pupils equal round and reactive to light, extra-ocular motions intact. Lids and lashes normal. Conjunctiva and sclera are non-icteric and not injected. Cornea within normal limits. Periorbital areas with no swelling, redness, or edema. Neck: Trachea midline, no thyromegaly or masses palpated, and no cervical lymphadenopathy. Supple, full range of motion without nuchal rigidity, or vertebral point tenderness. No Meningismus. Chest/axilla: Normal chest wall appearance and motion. Nontender with no deformity. No lesions are appreciated. Cardiovascular: Regular rate and rhythm with a normal S1 and S2. No gallops, murmurs, or rubs. Normal PMI, no JVD. No pulse deficits. Respiratory: Lungs have equal breath sounds bilaterally, clear to auscultation and percussion. No rales, rhonchi or wheezes noted. No increased work of breathing, no retractions or nasal flaring. Abdomen/GI: Soft, non-tender, with normal bowel sounds. No distension or tympany. No guarding or rebound. No evidence of tenderness throughout. Back: No spinal tenderness. No costovertebral tenderness. Full range of motion. Skin: Warm, dry with normal turgor. Normal color with no rashes, no lesions, and no evidence of cellulitis. MS/ Extremity: Pulses equal, no cyanosis. Neurovascular intact. Full, normal range of motion. Neuro: Awake and alert, GCS 15, oriented to person, place, time, and situation. Cranial nerves II-XII grossly intact. Motor strength 5/5 in all extremities. Sensory grossly intact. Cerebellar exam normal. Normal gait. Psych: Awake, alert, with orientation to person, place and time. Behavior, mood, and affect are within normal limits. Vital Signs: 13:28 BP 163 / 92; Pulse 74; Resp 18; Temp 98.7; Pulse Ox 100% on 2 lpm NC; tl3 14:35 BP 140 / 95; Pulse 85; Resp 18; Pulse Ox 94% on R/A; tl3 15:00 BP 157 / 95; Pulse 80; Resp 18; Pulse Ox 96% ; tl3 MDM: 13:44 Data reviewed: vital signs, nurses notes. Counseling: I had a detailed discussion with kdr the patient and/or guardian regarding: the historical points, exam findings, and any diagnostic results supporting the discharge/admit diagnosis, the need for outpatient follow up. 14:45 Patient medically screened. kdr Administered Medications: No medications were administered Disposition: 10/13/18 14:45 Discharged to Home. Impression: Acute allergic reaction. - Condition is Stable. - Discharge Instructions: Allergies, [id number]. - Prescriptions for Benadryl 25 mg Oral Capsule - take 1 capsule by ORAL route every 6 hours As needed; 30 tablet. - Medication Reconciliation Form, Thank You Letter form. - Follow up: Private Physician; When: 2 - 3 days; Reason: If symptoms return, Further diagnostic work-up, Recheck today's complaints, Continuance of care, Re-evaluation by your physician. - Problem is new. - Symptoms are resolved. Signatures: Guicho Gutierrez MD MD kdr Keisha Arriaza RN RN tl3 Corrections: (The following items were deleted from the chart) 15:28 14:45 10/13/2018 14:45 Discharged to Home. Impression: Acute allergic reaction. tl3 Condition is Stable. Forms are Medication Reconciliation Form, Thank You Letter, Antibiotic Education, Prescription Opioid Use. Follow up: Private Physician; When: 2 - 3 days; Reason: If symptoms return, Further diagnostic work-up, Recheck today's complaints, Continuance of care, Re-evaluation by your physician. Problem is new. Symptoms are resolved. kdr
[2018-10-13 15:33] VITALS: TEMP 98.7
[2018-10-13 15:36] VITALS: BP 157/95; O2SAT 96
== END 2018-10-13 15:28 | disposition home or self-care (01) ==
LOC: ER 13:11
DX: R21 Rash and other nonspecific skin eruption (principal); Z85.43 Personal history of malignant neoplasm of ovary
CPT/HCPCS: 99283

== ENCOUNTER 2018-12-26 16:01 | Emergency (ER) | payer BC ==
--- OUTSIDE RECORDS SUMMARY | 2018-12-26 16:04 | XMS REPORT | Clinical Summary ---
:1960 Author Organization [facility] Address [address] [place] [address] Care Team Providers Name Role Phone Masoud [...] 0 Active 55 mcg nasal inhaler nostril. dexamethasone (DECADRON) 0 08/29/2018 Active 4 MG tablet levoFLOXacin (LEVAQUIN) 0 09/06/2018 Active 500 MG tablet sulfamethoxazole-trimeth 0 09/28/2018 Active oprim (BACTRIM DS) 800-160 mg per tablet Active Problems Not on file Encounters Date Type Specialty Care Team Description 12/12/2018 Abstract Gynecologic Oncology Solange Colvin RN 12/12/2018 Orders Only Gynecologic Oncology Solange Colvin RN 11/25/2018 Lab Lab Lavern Dudley MD 11/25/2018 Telephone Gynecologic Oncology Lavern Dudley MD 11/17/2018 Hospital Encounter Radiology Lavern Dudley MD 11/17/2018 Office Visit Gynecologic Oncology Lavern Dudley Malignant neoplasm of ovary, unspecified laterality (HCC) (Primary Dx); MD Terence Recurrent cancer (HCC) 08/27/2018 Telephone Radiology Barbra Quick RN 08/24/2018 [...] Telephone Gynecologic Oncology Lavern Dudley MD after 12/25/2017 Family History Medical History Relation Name Comments [...] Vital Sign Reading Time Taken Blood Pressure 186/95 11/17/2018 9:26 AM INDUSTRIAL HYGIENE ENGINEER Pulse 82 11/17/2018 9:26 AM INDUSTRIAL HYGIENE ENGINEER Temperature 37.3 C (99.1 F) 08/24/2018 8:06 AM CDT Respiratory Rate 17 08/24/2018 12:50 PM CDT Oxygen Saturation 95% 08/24/2018 12:50 PM CDT Inhaled Oxygen Concentration - - Weight 98.1 kg (216 lb 3.2 oz) 11/17/2018 9:26 AM INDUSTRIAL HYGIENE ENGINEER Height 175.3 cm (5' 9") 11/17/2018 9:26 AM INDUSTRIAL HYGIENE ENGINEER Body Mass Index 31.93 11/17/2018 9:26 AM INDUSTRIAL HYGIENE ENGINEER Plan of Treatment Health Maintenance Due Date Last Done Comments CERVICAL CANCER SCREENING 1979 BREAST CANCER SCREENING 2008 COLON CANCER SCREENING 2008 SHINGLES VACCINES (#1) 2008 INFLUENZA VACCINE 06/01/2018 Implants Implanted Type Area Agricultural Equipment Salesperson Device Shelf Model / Identifier Expiration Serial / Date Lot Port Imlpntbl Smart Port W/ Dtchd 0.4ml 6.6fr 55cm W/ Sheath - [id number] Implantable N/A: ANGIODYNAMICS 03/31/2021 [id number] / Implanted: 08/24/2018 (Quantity not on file) Infusion Ports N/A INC / or Accessories [id number] Procedures Procedure Name Priority Date/Time Associated Comments Diagnosis BRCA PANEL Routine 12/01/2018 CT ABD/PELVIC EXTERNAL Routine 10/28/2018 7:59 Results for this STUDY AM INDUSTRIAL HYGIENE ENGINEER procedure are in the results section. US GUIDED VASCULAR Routine 08/24/2018 11:22 Malignant [...] procedure are in the results section. after 12/25/2017 Results BRCA Panel (12/01/2018) Specimen Tissue Narrative Performed At [facility] Test Result PATIENT Last Name: Candice, First Name: Lashay Shi Date of : 1960 Gender: Female Requisition #: [id number] ORDERING [place]ALTH[place] [address] [address] SPECIMEN Specimen Type: Tissue Slide Tissue: Ovary Surgery/Biopsy Date: Aug 24, 2018 TRF Received: Nov 19, 2018 Sample Received: Dec 01, 2018 Report Date: Dec 08, 2018 Block(s) Analyzed: A CLASS [id number] INSUFFICIENT TUMOR - UNABLE TO ANALYZE RESULTS DESCRIPTION [facility] [employer] [facility] was unable to complete the requested analysis on the sample submitted because there was not a sufficient amount of tumor tissue to run the test. Contact Customer Service at if you have any questions. [employer] [facility] | [place], [place] [address] | PH: [phone] FX: [phone] CT Abd/Pelvic External Study (10/28/2018 7:59 AM INDUSTRIAL HYGIENE ENGINEER)Only the most recent of2 resultswithin the time period is included. Narrative Performed At This exam was not acquired at a [facility] facility and has not been RADIANT interpreted by a [facility] Provider.The exam was imported into our imaging system for comparisons purposes. Performing Organization Address City/State/Zipcode Phone Number [facility] [address] [place] [address] IR Port Placement (08/24/2018 11:22 AM CDT) [...] and the venotomy site, through which the 6.6-Kazakh port catheter was placed. The venotomy was sequentially dilated to accept an 7-Kazakh peel-away sheath, through which the leading edge [...] cava junction and is ready for use. [facility]-[id number] Procedure Note Hm Interface, Radiology Results Incoming [...] the venotomy site, through which the 6.6- Kazakh port catheter was placed. The venotomy was sequentially dilated to accept an 7- Kazakh peel-away sheath, through which the leading edge [...] cava junction and is ready for use. [facility]-[id number] Performing Organization Address City/State/Zipcode Phone Number [facility] [address] [place] [address] US Guided Vascular Access (08/24/2018 11:22 AM [...] and the venotomy site, through which the 6.6-Kazakh port catheter was placed. The venotomy was sequentially dilated to accept an 7-Kazakh peel-away sheath, through which the leading edge [...] cava junction and is ready for use. [facility]-[id number] Procedure Note Hm Interface, Radiology Results Incoming [...] the venotomy site, through which the 6.6- Kazakh port catheter was placed. The venotomy was sequentially dilated to accept an 7- Kazakh peel-away sheath, through which the leading edge [...] cava junction and is ready for use. [facility]-[id number] Performing Organization Address City/[facility]/Zipcode Phone Number [facility] [address] [place] [address] Surgical pathology request (08/24/2018 10:46 AM CDT)Only the most recent of2 resultswithin the time period is included. [facility] DEPARTMENT OF PATHOLOGY AND GENOMIC MEDICINE Surgical pathology report See link below for PDF [facility] DEPARTMENT OF Lab Report PATHOLOGY AND GENOMIC MEDICINE Result status This is Final Report [facility] DEPARTMENT OF for [id number] PATHOLOGY AND GENOMIC MEDICINE Performing Organization Address City/[facility]/Zipcode Phone Number [facility] DEPARTMENT OF PATHOLOGY [address] [place] [address] Needle Biopsy No [...] biopsy of 8 cm pelvic complex mass. [facility]-[id number] Procedure Note Interface, Radiology Results Incoming - [...] biopsy of 8 cm pelvic complex mass. [facility]-[id number] Performing Organization Address City/State/Zipcode Phone Number [facility] [address] [place] [address] Partial thromboplastin time, activated (08/24/2018 7:45 AM CDT)Only the most recent of2 resultswithin the time period is included. PTT 29.5 23.0 - 36.0 sec [facility] DEPARTMENT OF Comment: PATHOLOGY AND [employer] PTT therapeutic range for unfractionated heparin is MEDICINE 61.0-112.0 seconds which corresponds to Anti-Xa 0.3-0.7 U/ml. Specimen Blood Performing Organization Address City/[facility]/Zipcode Phone Number [facility] DEPARTMENT OF PATHOLOGY [phone] [place] [address] AND [facility] Prothrombin time with INR (08/24/2018 7:45 AM CDT)Only the most recent of2 resultswithin the time period is included. Prothrombin time 13.1 12.0 - 15.0 sec [facility] DEPARTMENT OF PATHOLOGY AND GENOMIC MEDICINE INR 1.0 [facility] DEPARTMENT OF Comment: PATHOLOGY AND GENOMIC The International Normalized Ratio (INR) is a therapeutic MEDICINE monitoring tool for patients who are stable on oral anticoagulant therapy. An INR of 2.0-3.0 is suggested for deep vein thrombosis/pulmonary embolism. Specimen Blood Performing Organization Address [facility] Corporation[facility] Phone Number [facility] PATHOLOGY [id number] [place] [address] CBC with platelet and differential (08/24/2018 7:45 AM CDT)Only the most recent of2 resultswithin the time period is included. WBC 9.1 4.5 - 11.0 k/uL [facility] DEPARTMENT OF PATHOLOGY AND GENOMIC MEDICINE RBC 4.66 4.20 - 5.50 m/uL [facility] DEPARTMENT OF PATHOLOGY AND GENOMIC MEDICINE HGB 13.1 12.0 - 16.0 g/dL [facility] DEPARTMENT OF PATHOLOGY AND GENOMIC MEDICINE HCT 39.7 37.0 - 47.0 % [facility] DEPARTMENT OF PATHOLOGY AND GENOMIC MEDICINE MCV 85.2 82.0 - 100.0 fL [facility] DEPARTMENT OF PATHOLOGY AND GENOMIC MEDICINE MCH 28.1 27.0 - 34.0 pg [facility] DEPARTMENT OF PATHOLOGY AND GENOMIC MEDICINE MCHC 33.0 31.0 - 37.0 g/dL [facility] DEPARTMENT OF PATHOLOGY AND GENOMIC MEDICINE RDW - SD 39.8 37.0 - 55.0 fL [facility] DEPARTMENT OF PATHOLOGY AND GENOMIC MEDICINE MPV 10.9 6.9 - 11.0 fL [facility] DEPARTMENT OF PATHOLOGY AND GENOMIC MEDICINE Platelet count 248 150 - 400 K/uL [facility] DEPARTMENT OF PATHOLOGY AND GENOMIC MEDICINE Nucleated RBC 0.00 /100 WBC [facility] DEPARTMENT OF PATHOLOGY AND GENOMIC MEDICINE Neutrophils 66.4 39.0 - 69.0 % [facility] DEPARTMENT OF PATHOLOGY AND GENOMIC MEDICINE Lymphocytes 21.7 (L) 25.0 - 45.0 % [facility] DEPARTMENT OF PATHOLOGY AND GENOMIC MEDICINE Monocytes 7.8 0.0 - 10.0 % [facility] DEPARTMENT OF PATHOLOGY AND GENOMIC MEDICINE Eosinophils 3.4 0.0 - 5.0 % [facility] DEPARTMENT OF PATHOLOGY AND GENOMIC MEDICINE Basophils 0.4 0.0 - 1.0 % [facility] DEPARTMENT OF PATHOLOGY AND GENOMIC MEDICINE Immature granulocytes 0.3 0.0 - 1.0 % [facility] DEPARTMENT OF PATHOLOGY AND GENOMIC MEDICINE Specimen Blood Performing Organization Address City/State/Zipcode Phone Number [facility] DEPARTMENT OF PATHOLOGY [address] [facility] [place] [address] AND GENOMIC MEDICINE PET/CT Skull Base To Mid Thigh (08/18/2018) Narrative Performed At [facility] RADIOLOGY SERVICES REPORT Name: LASHAY FRANCO : 1960 Age: 57 Sex: F Unit Number: [id number] Status: REG REF RAD Acct Number: [id number] Ord Phys: Abiel Metzger.Jenny NUÑEZ [facility] [facility] [address]: Exam Date: 08/18/18 Reason for Exam: C56.1 Report status: Signed EXAM DESCRIPTION: NM - Ct Skull/Thigh - 08/18/2018 1:19 pm CLINICAL HISTORY: 056.1 COMPARISON: CT imaging July. TECHNIQUE: Blood Glucose Nahma: 87 mg/dl Radioisotope: 10.79 MCi of F-18 [...] be followed as warranted. CC: Jenny Anand MD,LASHAY ARIANNA I Report [id number] Dictated By: Tavo Nixon MD 08/22/18 1130 Signed By: Tavo Nixon MD 08/22/18 1131 [address] Charrer AURELIANO 08/22/18 1130 Additional Comment(s) for PET SCAN, for Lashay Franco dated 08/22/2018 [Sign-off by Dr. Jenny Beebe and request additional sign-off by Dominique Garcia 08/22/2018 at 12:07 PM] uptake in the pelvic mass as expected, no distant sites of uptake to suggest mets.PI let pt know and fax to [facility] Radiology Services Report Estimated GFR (08/12/2018 10:45 AM CDT) Estimated GFR 77 mL/min/1.73 m2 [facility] DEPARTMENT OF Comment: PATHOLOGY AND GENOMIC CatergoryUnitsInterpretation MEDICINE G1 >=90 Normal or high G2 60-89Mildly decreased [id number] to moderately decreased A2f52-52Qetrulovuh to severely decreased G4 15-29Severely decreased G5 <15Kidney failure The eGFR was calculated using the Chronic Kidney Disease Epidemiology Collaboration (CKD-EPI) equation. Interpretation is based on recommendations of the National Kidney Foundation-Kidney Disease Outcomes Quality Initiative (NKF-KDOQI) published in 2014. Specimen Plasma specimen Performing Organization Address City/State/Zipcode Phone Number [facility] DEPARTMENT OF PATHOLOGY AND [address] [place] [address] GENOMIC MEDICINE Cancer antigen 125 (08/12/2018 10:45 AM CDT)Only the most recent of2 resultswithin the time period is included. CA 125 36 (H) 0 - 35 U/mL [facility] DEPARTMENT OF PATHOLOGY Comment: AND GENOMIC [facility] The [place] Zak 8000 CA125 immunoassay was used. Results obtained with different assay methods or kits should not be used interchangeably and may be different. Specimen Plasma specimen Performing Organization Address City/State/Zipcode Phone Number [facility] DEPARTMENT OF PATHOLOGY AND [address] [place] [address] [employer] [facility] Comprehensive metabolic panel (08/12/2018 10:45 AM CDT) Sodium 142 135 - 148 mEq/L [facility] DEPARTMENT OF PATHOLOGY AND GENOMIC MEDICINE Potassium 4.0 3.5 - 5.0 mEq/L [facility] DEPARTMENT OF PATHOLOGY AND GENOMIC MEDICINE Chloride 106 99 - 109 mEq/L [facility] DEPARTMENT OF PATHOLOGY AND GENOMIC MEDICINE CO2 25 24 - 31 mEq/L [facility] DEPARTMENT OF PATHOLOGY AND GENOMIC MEDICINE Anion gap 11@ANIO 7 - 15 mEq/L [facility] DEPARTMENT OF PATHOLOGY AND GENOMIC MEDICINE BUN 12 8 - 24 mg/dL [facility] DEPARTMENT OF PATHOLOGY AND GENOMIC MEDICINE Creatinine 0.83 0.50 - 0.90 mg/dL [facility] DEPARTMENT OF PATHOLOGY AND GENOMIC MEDICINE Glucose 102 (H) 65 - 99 mg/dL [facility] DEPARTMENT OF PATHOLOGY AND GENOMIC MEDICINE Calcium 9.2 8.6 - 10.6 mg/dL [facility] DEPARTMENT OF PATHOLOGY AND GENOMIC MEDICINE Protein 7.2 6.3 - 8.2 g/dL [facility] DEPARTMENT OF PATHOLOGY AND GENOMIC MEDICINE Albumin 3.6 3.5 - 5.0 g/dL [facility] DEPARTMENT OF PATHOLOGY AND GENOMIC MEDICINE A/G ratio 1.0 0.7 - 3.8 [facility] DEPARTMENT OF PATHOLOGY AND GENOMIC MEDICINE Alkaline phosphatase 77 30 - 115 U/L [facility] DEPARTMENT OF PATHOLOGY AND GENOMIC MEDICINE AST 19 15 - 46 U/L [facility] DEPARTMENT OF PATHOLOGY AND GENOMIC MEDICINE ALT 21 10 - 55 U/L [facility] DEPARTMENT OF PATHOLOGY AND GENOMIC MEDICINE Total bilirubin <0.3 0.2 - 1.2 mg/dL [facility] DEPARTMENT OF PATHOLOGY AND GENOMIC MEDICINE Specimen Plasma specimen Performing Organization Address City/State/Zipcode Phone Number [facility] OF PATHOLOGY AND [address] [place] [address] [employer] [facility] after 12/25/2017 Insurance Payer Benefit Plan / Group Subscriber ID Type Phone Address [facility]HMO [employer] xxxxxxxxxxxx HMO [phone] (Work) Advance Directives Patient has advance care planning documents on file. For more information, please contact:Gilbert [id number] [place] [address]
--- OUTSIDE RECORDS SUMMARY | 2018-12-26 16:04 | XMS REPORT ---
[...] End Status Dosage System Date Date Scopolamine [facility] [id number] 1 MG/3DAYS Active 1 patch to Transdermal skin every every 72 hours 3 days as needed for nausea Losartan ND 73996178505 100 MG Orally Active 1 tablet Potassium Once a day Nasonex ND 61396991141 50 MCG/ACT April 26, Active 2 sprays Nasally Once a 2018 in each day nostril Results No Known Results Summary Purpose [employer]ClinicalWorks Submission
[2018-12-26] MEDS ORDERED: ONDANSETRON 4 MG/2 ML VIAL ONE ×2 (17:32→23:20)
[2018-12-26] MEDS ORDERED: NA CHLORIDE 0.9% 1,000 ML ONE (17:32)
[2018-12-26 17:36] LABS: Absolute Lymphocytes (CBC) 1.5 K/uL (0.7-4.9); Absolute Monocytes 1.2 K/uL (0.1-1.3); Absolute Neutrophil 21.9 K/uL (1.8-8.0); Basophils % 0.4 % (0-1.3); Eosinophils % 1.2 % (0-4.4); Hematocrit 33.1 % (36.0-45.0); Lymphocytes % 5.9 % (15.3-44.8); MPV 8.3 fL (7.6-11.3); RBC Red Blood Cell Count 3.83 M/uL (3.86-4.86)
[2018-12-26 17:49] LABS: Albumin 2.3 g/dL (3.4-5.0); Bilirubin Total 0.4 mg/dL (0.2-1.0); Potassium 4.1 mmol/L (3.5-5.1); Protein, Total 7.2 g/dL (6.4-8.2)
[2018-12-26 18:17] LABS: Blood Morphology Comment NOT SEEN (NOT SEEN); Dohle Bodies PRESENT; Platelet Estimate ADEQ
[2018-12-26] MEDS ORDERED: CEFTRIAXONE/SWI 1gm 1 GM/10 ML SYR ONE (18:29)
[2018-12-26] MEDS ORDERED: METRONIDAZOLE 500mg IVPB 500 MG/100 ML BAG IV ONE (18:29)
--- NOTE | 2018-12-26 18:46 | RAD REPORT ---
EXAM DESCRIPTION: CT - Abdomen Pelvis W Contrast - 12/26/2018 6:11 pm CLINICAL HISTORY: Abdominal pain Patient has a history of ovarian carcinoma, partial colon resection, appendectomy, cholecystectomy an d hysterectomy. COMPARISON: CT pelvis December 12, 2018, CT abdomen and pelvis October 2018 and July 2018 TECHNIQUE: Biphasic, helical CT imaging of the abdomen and pelvis was performed following 100 ml non -ionic IV contrast. Oral contrast was given. All CT scans are performed using dose optimization technique as appropriate and may include automated exposure control or mA/KV adjustment according to patient size. FINDINGS: Trace amount of pleural fluid and atelectasis at each base. No pericardial thickening or e ffusion. Liver is borderline fatty infiltrated. No focal liver lesion. Spleen and pancreas are unremarkable. C holecystectomy clips are present with no biliary tree dilatation. Symmetric renal function is seen with no hydronephrosis or suspicious renal mass. No pyelonephritis o r acute parenchymal process. A 10 millimeter nonobstructing calculus present lower pole left kidney. This is stable from comparison. Urinary bladder is fully contracted precluding assessment. No adrenal abnormalities. No acute primary colon process identified. Rectosigmoid anastomotic site shows no acute findings. Mod erate-sized fat only hernias again noted at the prior left abdomen colostomy site. No acute finding i n this region. No pneumatosis, free air or free fluid. A 9 x 8 centimeter heterogeneous mass density is present along the floor the pelvis. This mass has be en present previously. The July examination showed an 8 centimeter mixed solid and cystic mass. This was reduced to a 5 centimeter mass with air in fluid present October 2018. The December 12 stud y showed a mass density present 5 cm in size. No communication to the bowel could be demonstrated. e current examination shows a much larger mass than seen December 12. This is likely accumulation of fluid centrally within the mass. Significant change in size solely from tumor growth would not be exp ected over a 2 week interval. No suspicious bony findings. IMPRESSION: A 9 x 8 centimeter heterogeneous pelvic mass is present representing enlargement from December 12 study. Interval enlargement is probably due to fluid accumulation within the central p ortion of the mass. Tumor growth of this magnitude would not be expected over 2 weeks. The pelvic mass has shown variable size and attenuation dating back to July 2018. There has been cystic and air components within this mass on previous studies. Fistula or communication to the blad vel, bowel or vaginal cuff are not evident on this examination. No obstruction, free air or surgically emergent finding.
[2018-12-26 20:30] LABS: Urine Blood 2+ (NEG); Urine Glucose NEGATIVE (NEG); Urine Protein 2+ (NEG); Urine pH 5.5 (5.0-7.0)
--- NOTE | 2018-12-26 22:03 | ER ---
Nurse's Notes [facility] Name: Tracey Harvey Age: 58 yrs Sex: Female : 1960 Arrival Date: 12/26/2018 Time: 16:04 Bed 14 Private MD: Masoud Lyman Diagnosis: Systemic inflammatory response syndrome (SIRS) of non-infectious origin;Pelvic and perineal pain Presentation: 12/26 16:08 Presenting complaint: Patient states: "I have no energy since November and I get short aa5 of breath doing anything". Pt states "I can only eat a cup at a time because I get full so fast". Pt states "my iron is low so they just did an iron infusion just before coming here". Pt also report having labs today, reports WBC 28.1 and Hemoglobin 10.7. Pt reports last Chemo was the beginning of November. Diarrhea since Wednesday and nausea today. Pt reports having a CT scan done on December 12, pt states "the CT scan results were fine". Transition of care: patient was not received from another setting of care. Onset of symptoms was December 2018. Risk Assessment: Do you want to hurt yourself or someone else? Patient reports no desire to harm self or others. Care prior to arrival: None. 16:08 Method Of Arrival: Ambulatory aa5 16:08 Acuity: VIKTOR 3 aa5 17:55 Initial Sepsis Screen: Does the patient meet any 2 criteria? No. Patient's initial jl7 sepsis screen is negative. Does the patient have a suspected source of infection? No. Patient's initial sepsis screen is negative. Historical: - Allergies: 16:12 No Known Allergies; aa5 - PMHx: 16:12 ovarian cancer; aa5 - PSHx: 16:12 Colon resection; Appendectomy; Cholecystectomy; Tonsillectomy; D \\T\\ C; Hysterectomy; aa5 Colostomy; - Social history:: Smoking status: Patient/guardian denies using tobacco, Patient/guardian denies using alcohol, street drugs, The patient lives with family. - Ebola Screening: : No symptoms or risks identified at this time. - Family history:: not pertinent. Screenin:10 Abuse screen: Denies threats or abuse. Denies injuries from another. Nutritional jl7 screening: No deficits noted. Tuberculosis screening: No symptoms or risk factors identified. Fall Risk IV access (20 points). Total White Fall Scale indicates No Risk (0-24 pts). Assessment: 17:10 General: Appears in no apparent distress. uncomfortable, Behavior is calm, cooperative, jl7 appropriate for age. Pain: Complains of pain in left lower quadrant. Neuro: Level of Consciousness is awake, alert, obeys commands, Oriented to person, place, time, situation. Cardiovascular: Patient's skin is warm and dry. Respiratory: Airway is patent Respiratory effort is even, unlabored, Respiratory pattern is regular, symmetrical. GI: Abdomen is round non-distended, Bowel sounds present X 4 quads. Abd is soft and non tender Reports diarrhea. : No signs and/or symptoms were reported regarding the genitourinary system. Denies burning with urination, pain urinary frequency. EENT: No signs and/or symptoms were reported regarding the EENT system. Derm: Skin is dry, Skin is pale, Skin temperature is warm. Musculoskeletal: No signs and/or symptoms reported regarding the musculoskeletal system. 17:54 Reassessment: Critical lab results, WBC 25, ERD notified. jl7 19:20 General: Appears in no apparent distress. uncomfortable, Behavior is calm, cooperative, aj1 appropriate for age, Reports general malaise. Pain: Pain currently is 3 out of 10 on a pain scale. Neuro: Level of Consciousness is awake, alert, obeys commands, Oriented to person, place, time, situation. Cardiovascular: Patient's skin is warm and dry. Respiratory: Airway is patent Respiratory effort is even, unlabored, Respiratory pattern is regular, symmetrical. GI: Abdomen is non-distended. Derm: No signs and/or symptoms reported regarding the dermatologic system. Skin is dry, Skin is pale, Skin temperature is warm. Musculoskeletal: No signs and/or symptoms reported regarding the musculoskeletal system. Circulation, motion, and sensation intact. 20:51 Reassessment: Patient appears in no apparent distress at this time. No changes from aj1 previously documented assessment. Patient and/or family updated on plan of care and expected duration. Pain level reassessed. Patient is alert, oriented x 3, equal unlabored respirations, skin warm/dry/pink. 21:45 Reassessment: Patient appears in no apparent distress at this time. No changes from aj1 previously documented assessment. Patient and/or family updated on plan of care and expected duration. Pain level reassessed. Patient is alert, oriented x 3, equal unlabored respirations, skin warm/dry/pink. 22:12 Reassessment: Attempted to call reports to [facility]. No answer, will [facility] try again. 22:45 Reassessment: Patient appears in no apparent distress at this time. No changes from aj1 previously documented assessment. Patient and/or family updated on plan of care and expected duration. Pain level reassessed. Patient is alert, oriented x 3, equal unlabored respirations, skin warm/dry/pink. Vital Signs: 16:11 BP 111 / 67; Pulse 108; Resp 18 S; Temp 99.7(O); Pulse Ox 96% on R/A; Weight 90.72 kg aa5 (R); Height 5 ft. 9 in. (175.26 cm) (R); Pain 3/10; 19:20 BP 122 / 74; Pulse 97; Resp 18; Pulse Ox 99% on R/A; aj1 19:44 BP 122 / 74; Pulse 100; Resp 18; Pulse Ox 94% on R/A; mt 20:51 BP 128 / 78; Pulse 103; Resp 18; Pulse Ox 96% on R/A; aj1 22:13 BP 129 / 71; Pulse 102; Resp 20; Pulse Ox 94% on R/A; aj1 16:11 Body Mass Index 29.53 (90.72 kg, 175.26 cm) aa5 ED Course: 16:04 Patient arrived in ED. mr 16:04 Masoud Lyman MD is Private Physician. mr 16:08 Arm band placed on. aa5 16:11 Triage completed. aa5 16:15 Ashely Forrest, DEBBI is Primary Nurse. jl7 16:48 Kathrine Mas MD is Attending Physician. ma2 17:04 Radiology exam delayed due to lab results not completed at this time. (BUN/Creatinine). vm2 17:10 Patient has correct armband on for positive identification. Placed in gown. Bed in low jl7 position. Call light in reach. Side rails up X 1. Pulse ox on. NIBP on. Warm blanket given. 17:15 Missed attempt(s): 22 gauge in left antecubital area. Bleeding controlled, band aid jl7 applied, catheter tip intact. 17:16 Radiology exam delayed due to lab results not completed at this time. (BUN/Creatinine). vm2 17:20 Initial lab(s) drawn, by me, sent to lab. Inserted saline lock: 22 gauge in left jl7 forearm, using aseptic technique. Blood collected. 17:41 Radiology exam delayed due to lab results not completed at this time. (BUN/Creatinine). vm2 17:54 Patient moved to NM via wheelchair. vm2 18:11 CT Abd/Pelvis - W/Contrast In Process Unspecified. EDMS 18:11 CT completed. Patient tolerated procedure well. Patient moved back from NM. vm2 19:01 Primary Nurse role handed off by Ashely Forrest RN jl7 19:20 No provider procedures requiring assistance completed. aj1 20:25 Debbie Wellington, DEBBI is Primary Nurse. aj1 22:37 Report given to DEBBI Stacy at [facility]. aj1 23:16 Patient transferred, IV remains in place. aj1 Administered Medications: 17:32 Drug: NS 0.9% 1000 ml Route: IV; Rate: 1 bolus; Site: left forearm; jl7 18:42 Follow up: IV Status: Completed infusion; IV Intake: 1000ml jl7 17:33 Drug: Zofran 4 mg Route: IVP; Site: left forearm; jl7 18:00 Follow up: Response: No adverse reaction; Nausea is decreased jl7 18:20 Drug: Rocephin 1 grams Route: IV; Rate: calculated rate; Site: left forearm; jl7 18:23 Follow up: Response: No adverse reaction; IV Status: Completed infusion jl7 18:24 Drug: Flagyl 500 mg Volume: 100 ml; Route: IVPB; Rate: 200 ml/hr; Infused Over: 30 jl7 mins; Site: left forearm; 19:30 Follow up: IV Status: Completed infusion; IV Intake: 100ml aj1 23:14 Drug: Zofran 4 mg Route: IVP; Site: left forearm; aj1 23:15 Follow up: Response: No adverse reaction aj1 Intake: 18:42 IV: 1000ml; Total: 1000ml. jl7 19:30 IV: 100ml; Total: 1100ml. aj1 Outcome: 22:02 ER care complete, transfer ordered by . ma2 23:16 Transferred by ground EMS to [facility]. aj1 23:16 Condition: stable 23:16 Discharge instructions given to patient, family, Instructed on the need for transfer, Demonstrated understanding of instructions. 23:17 Patient left the ED. aj1 Signatures: Dispatcher [employer] EDDebbie Waddell, RN RN aj1 Bessie Tom, Kayley, RN RN aa5 Ashely Forrest RN RN jl7 Mica Shen [facility] Lizzeth Cooper [place] Kathrine Mas MD MD ma2 Corrections: (The following items were deleted from the chart) 16:13 16:08 Presenting complaint: Patient states: "I have no energy since November and I get aa5 short of breath doing anything". Pt states "I can only eat a cup at a time because I get full so fast". Pt states "my iron is low so they just did an iron infusion just before coming here". Pt also report having labs today, reports WBC 28.1 and Hemoglobin 10.7. Pt reports last Chemo was the beginning of November. aa5 16:14 16:08 Presenting complaint: Patient states: "I have no energy since November and I get aa5 short of breath doing anything". Pt states "I can only eat a cup at a time because I get full so fast". Pt states "my iron is low so they just did an iron infusion just before coming here". Pt also report having labs today, reports WBC 28.1 and Hemoglobin 10.7. Pt reports last Chemo was the beginning of November. Diarrhea since Wednesday and nausea today. aa5 16:14 16:11 BP 111 / 67; Pulse 108bpm; Resp 18bpm; Spontaneous; Pulse Ox 96% RA; Temp 99.7F aa5 Oral; aa5
--- NOTE | 2018-12-26 22:03 | EDPHYS ---
Physician Documentation [facility] Name: Tracey Harvey Age: 58 yrs Sex: Female : 1960 Arrival Date: 12/26/2018 Time: 16:04 Bed 14 Private MD: Masoud Lyman ED Physician AbelSatish valdiviaasia HPI: 12/26 18:14 This 58 yrs old Female presents to ER via Ambulatory with complaints of ma2 Abdominal Pain, Weakness. 18:14 The patient presents to the emergency department with none. Onset: The symptoms/episode ma2 began/occurred gradually, 1 week(s) ago. Associated signs and symptoms: Pertinent positives: abd pain, generalized and generalized weakness dehydration , Pertinent negatives: chills, headache, paresthesias, visual field changes. Severity of symptoms: At their worst the symptoms were moderate in the emergency department the symptoms are unchanged. Current symptoms: Currently, the patient is not experiencing any symptoms. The patient has experienced similar episodes in the past. Historical: - Allergies: 16:12 No Known Allergies; aa5 - PMHx: 16:12 ovarian cancer; aa5 - PSHx: 16:12 Colon resection; Appendectomy; Cholecystectomy; Tonsillectomy; D \T\ C; Hysterectomy; aa5 Colostomy; - Social history:: Smoking status: Patient/guardian denies using tobacco, Patient/guardian denies using alcohol, street drugs, The patient lives with family. - Ebola Screening: : No symptoms or risks identified at this time. - Family history:: not pertinent. ROS: 18:14 Constitutional: Negative for fever, chills, and weight loss, Cardiovascular: Negative ma2 for chest pain, palpitations, and edema, Respiratory: Negative for shortness of breath, cough, wheezing, and pleuritic chest pain. 18:14 Abdomen/GI: Positive for abdominal pain, nausea, Negative for nausea and vomiting, diarrhea, abdominal cramps, rectal pain, flatulence. 18:14 All other systems are negative. Exam: 18:14 Constitutional: This is a well developed, well nourished patient who is awake, alert, ma2 and in no acute distress. Chest/axilla: Normal chest wall appearance and motion. Nontender with no deformity. No lesions are appreciated. Cardiovascular: Regular rate and rhythm with a normal S1 and S2. No gallops, murmurs, or rubs. Normal PMI, no JVD. No pulse deficits. Respiratory: Lungs have equal breath sounds bilaterally, clear to auscultation and percussion. No rales, rhonchi or wheezes noted. No increased work of breathing, no retractions or nasal flaring. 18:14 MS/ Extremity: Pulses equal, no cyanosis. Neurovascular intact. Full, normal range of motion. Neuro: Awake and alert, GCS 15, oriented to person, place, time, and situation. Cranial nerves II-XII grossly intact. Motor strength 5/5 in all extremities. Sensory grossly intact. Cerebellar exam normal. Normal gait. 18:14 Abdomen/GI: Inspection: scar(s), Palpation: mild abdominal tenderness, in all quadrants, rebound tenderness, is not appreciated, voluntary guarding, is not appreciated, involuntary guarding, is not appreciated. Vital Signs: 16:11 BP 111 / 67; Pulse 108; Resp 18 S; Temp 99.7(O); Pulse Ox 96% on R/A; Weight 90.72 kg aa5 (R); Height 5 ft. 9 in. (175.26 cm) (R); Pain 3/10; 19:20 BP 122 / 74; Pulse 97; Resp 18; Pulse Ox 99% on R/A; aj1 19:44 BP 122 / 74; Pulse 100; Resp 18; Pulse Ox 94% on R/A; mt 20:51 BP 128 / 78; Pulse 103; Resp 18; Pulse Ox 96% on R/A; aj1 22:13 BP 129 / 71; Pulse 102; Resp 20; Pulse Ox 94% on R/A; aj1 16:11 Body Mass Index 29.53 (90.72 kg, 175.26 cm) aa MDM: 16:48 Patient medically screened. [facility] 21:05 Data reviewed: vital signs, nurses notes. Counseling: I had a detailed discussion with ma the patient and/or guardian regarding: the historical points, exam findings, and any diagnostic results supporting the discharge/admit diagnosis, the presence of at least one elevated blood pressure reading (>120/80) during this emergency department visit. Counseling: I had a detailed discussion with the patient and/or guardian regarding: the presence of at least one elevated blood pressure reading (>120/80) during this emergency department visit, the need to transfer to another facility. Response to treatment: the patient's symptoms have mildly improved after treatment. 22:02 ED course: has pelvic mass and sirs and dehydration, her oncologist dr. polk is at [address] and patient want to transfer there . 12/26 17:03 Order name: CBC with Diff; Complete Time: 19:27 7 12/26 17:03 Order name: CMP; Complete Time: 17:54 7 12/26 17:03 Order name: Lipase; Complete Time: 17:54 7 12/26 17:03 Order name: CT Abd/Pelvis - W/Contrast; Complete Time: 19:27 7 12/26 17:43 Order name: Manual Differential; Complete Time: 19:27 EDMS 12/26 18:30 Order name: Urine Dipstick--Ancillary (enter results); Complete Time: 20:57 bd 12/26 17:03 Order name: Urine Dipstick-Ancillary (obtain specimen); Complete Time: 19:00 jl7 Administered Medications: 17:32 Drug: NS 0.9% 1000 ml Route: IV; Rate: 1 bolus; Site: left forearm; jl7 18:42 Follow up: IV Status: Completed infusion; IV Intake: 1000ml jl7 17:33 Drug: Zofran 4 mg Route: IVP; Site: left forearm; jl7 18:00 Follow up: Response: No adverse reaction; Nausea is decreased jl7 18:20 Drug: Rocephin 1 grams Route: IV; Rate: calculated rate; Site: left forearm; jl7 18:23 Follow up: Response: No adverse reaction; IV Status: Completed infusion jl7 18:24 Drug: Flagyl 500 mg Volume: 100 ml; Route: IVPB; Rate: 200 ml/hr; Infused Over: 30 jl7 mins; Site: left forearm; 19:30 Follow up: IV Status: Completed infusion; IV Intake: 100ml aj1 23:14 Drug: Zofran 4 mg Route: IVP; Site: left forearm; aj1 23:15 Follow up: Response: No adverse reaction aj1 Disposition: 12/26/18 22:02 Transfer ordered to Other Acute Care Facility. Diagnosis are Systemic inflammatory response syndrome (SIRS) of non-infectious origin, Pelvic and perineal pain. - Reason for transfer: Higher level of care. - Accepting physician is Dr. Roberts. - Condition is Stable. - Problem is new. - Symptoms are unchanged. Signatures: Dispatcher [employer] Debbie Mehta RN RN aj1 Alba Atkinson RN RN bb Kayley Larios, RN RN aa5 Ashely Forrest RN RN jl7 Kathrine Mas MD MD ma2 Corrections: (The following items were deleted from the chart) 23:17 22:02 12/26/2018 22:02 Transfer ordered to Other Acute Care Facility. Diagnosis is aj1 Systemic inflammatory response syndrome (SIRS) of non-infectious origin; Pelvic and perineal pain. Reason for transfer: Higher level of care. Accepting physician is Dr. Roberts. Condition is Stable. Problem is new. Symptoms are unchanged. ma2
[2018-12-26 23:22] VITALS: TEMP 99.7
[2018-12-26 23:27] VITALS: BP 129/71; O2SAT 94
== END 2018-12-26 23:17 ==
LOC: ER 16:01
DX: R53.1 Weakness (principal); R65.10 Systemic inflammatory response syndrome (SIRS) of non-infectious origin without acute organ dysfunction; Z85.43 Personal history of malignant neoplasm of ovary
CPT/HCPCS: 36415; 74177; 80053; 81003; 83690; 85025; 96361; 96365; 96375; 99285; J0696; J2405; J7030; Q9967